=== PATIENT | male | born 1955 | race Hispanic/Latino ===

== ENCOUNTER → 2019-05-13 | Outpatient (CLI) | payer BC ==
--- NOTE | 2019-05-13 10:36 | Diagnostic Imaging Report ---
Exam: Testicular ultrasound. Clinical History: Hydrocele Findings: Sonographic evaluation of the testicles. Both testes are normal in echogenicity and demonstrate normal symmetric blood flow and waveforms. RIGHT: The right testicle measures 3.7 x 1.7 x 3.5 cm. Intratesticular cyst measures 4 x 3 x 4 mm. Epididymis not well seen. Large right complex hydrocele. LEFT: The left testicle measures 4.7 x 2.2 x 2.7 cm. Intratesticular cyst measures 4 x 3 x 4 mm. Epididymis not well seen. Left epididymal cyst measures 2.4 x 1.5 x 2.0 cm. Impression: No testicular torsion. Large complex right hydrocele. Subcentimeter cysts of both testes. Poor visualization of both epididymis. Left epididymal cyst. Signed by: Yue Aviles MD on 05/13/2019 10:32 AM
== END ==
LOC: US 09:14
PROVIDERS: ATTEND Family Medicine
DX: N43.3 Hydrocele, unspecified (principal)
CPT/HCPCS: 76870; 93976

== ENCOUNTER → 2019-07-03 | Day surgery (SDC) | payer BC ==
[2019-06-28 14:22] LABS: BASOPHILS % 0.5 % (0.0-1.0); EOSINOPHILS # (AUTO) 0.1 (0.0-0.4); EOSINOPHILS % 1.1 % (0.0-6.0); HEMATOCRIT 47.2 % (38.2-49.6); LYMPHOCYTES # (AUTO) 1.7 (1.0-3.2); LYMPHOCYTES % 20.2 % (18.0-39.1); MEAN CORPUSCULAR HEMOGLOBIN 30.7 pg (28-32); MEAN CORPUSCULAR HGB CONC 33.9 g/dL (31-35); MEAN CORPUSCULAR VOLUME 90.4 fL (81-99); MONOCYTES # (AUTO) 0.5 (0.2-0.8); MONOCYTES % 5.7 % (4.4-11.3); NEUTROPHILS % 72.3 % (38.7-80.0); PLATELET COUNT 262 x10e3/uL (140-360); RED BLOOD COUNT 5.22 x10e6/uL (4.3-5.7); RED CELL DISTRIBUTION WIDTH 13.6 % (11.7-14.4)
[2019-06-28 14:38] LABS: ANION GAP 14.2 mmol/L (8-16); BLOOD UREA NITROGEN 12 mg/dL (7-26); BUN/CREATININE RATIO 13 (6-25); CALCIUM 9.5 mg/dL (8.4-10.2); CARBON DIOXIDE 24 mmol/L (22-29); CHLORIDE 105 mmol/L (98-107); CREATININE, SERUM 0.94 mg/dL (0.72-1.25); EST GLOMERULAR FILTRATION RATE > 60 ML/MIN (60-); GLUCOSE 110 mg/dL (74-118); POTASSIUM 4.2 mmol/L (3.5-5.1); SODIUM 139 mmol/L (136-145)
--- NOTE | 2019-06-28 14:42 | Diagnostic Imaging Report ---
EXAMINATION: CHEST 2 VIEWS INDICATION: Pre-operative COMPARISON: None FINDINGS: LINES/TUBES:None LUNGS:The lungs are well-inflated. No focal consolidation or pulmonary edema. PLEURA:No pleural effusion or pneumothorax. MEDIASTINUM:The cardiomediastinal silhouette appears normal in size and shape. BONES/SOFT TISSUES:No acute osseous injury. ABDOMEN:No free air under the diaphragm. IMPRESSION: No focal pneumonia or pulmonary edema. Signed by: Yue Aviles MD on 06/28/2019 2:39 PM
[~2019-07-03] MED LIST: ACETAMINOPHEN 1000 MG/100 ML 100 ML IV ONE; BUPIVACAINE 0.25%/EPI 30ML SDV INJ ONE; CEFAZOLIN SOD 1 GM VIAL ONE; DEXAMETHASONE SOD PHOS INJ 4 MG/ML VIAL ONE; FENTANYL CITRATE/PF 100MCG/2 ML INJ ONE; KETOROLAC TROMETHAMINE 30 MG/ML VIAL ONE; LIDOCAINE HCL 1% LOCAL INJ 20 ML VIAL ONE; LIDOCAINE HCL 2% LOCAL INJ 5 ML SDV VIAL INJ ONE; MEPERIDINE HCL INJ 25 MG/ML VIAL ONE; METFORMIN HCL500 MG PO; MIDAZOLAM HCL 2 MG/2 ML VIAL ONE; ONDANSETRON HCL INJ 2MG/ML 2ML 2 MG/ML VIAL ONE; PROPOFOL IV EMULSION 10 MG/ML 20 ML VIAL ONE; SEVOFLURANE INHAL SOLN 250 ML PEN BTL ONE
--- OUTSIDE RECORDS SUMMARY | 2019-07-03 09:00 | XMS REPORT ---
Author Author [facility] Address Unknown Phone Unavailable Care Team Providers Care Assembler Dc Field Yoke Name Role Phone Gemma HERNÁNDEZ Unavailable Unavailable Cristofer KATE Unavailable Unavailable Problems This patient has no known problems. Allergies, Adverse Reactions, Alerts This patient has no known allergies or adverse reactions. Medications This patient has no known medications. Results Test Description Test Time Test Comments Text Results Atomic Results Result Comments CHEST 2 VIEWS 2019-06-28 14:38:00 [facility] [address] [place] [address] Patient Name: LD ZHU MR #: [id number] : 1955 Age/Sex: 64/M Req #: [id number] Adm Physician: Ordered by: RAMESH HERNÁNDEZ MD Report #: [id number] Location: OR Room/Bed: Procedure: [id number] DX/CHEST 2 VIEWS Exam Date: 06/28/19 Exam Time: 1414 REPORT STATUS: Signed EXAMINATION: CHEST 2 VIEWS INDICATION: Pre-operative COMPARISON: None FINDINGS: LINES/TUBES:None LUNGS:The lungs are well-inflated. No focal consolidation or pulmonary edema. PLEURA:No pleural effusion or pneumothorax. MEDIASTINUM:The cardiomediastinal silhouette appears normal in size and shape. BONES/SOFT TISSUES:No acute osseous injury. ABDOMEN:No free air under the diaphragm. IMPRESSION: No focal pneumonia or pulmonary edema. Signed by: Mario Alvarado MD on 06/28/2019 2:39 PM Dictated By: MARIO ALVARADO MD 38 Transcribed By: Darci TAFOYA on 06/28/191438 COPY TO: RAMESH HERNÁNDEZ MD US TESTICULAR 2019-05-13 10:27:00 [place] [address] Patient Name: LD ZHU MR #: [id number] : 1955 Age/Sex: 64/M Req #: [id number] Adm Physician: Ordered by: ARAMIS KATE MD Report #: [id number] Location: Room/Bed: Procedure: [id number] US/US TESTICULAR Exam Date: 05/13/19 Exam Time: 09 REPORT STATUS: Signed Exam: Testicular ultrasound. Clinical History: Hydrocele Findings: Sonographic evaluation of the testicles. Both testes are normal in echogenicity and demonstrate normal symmetric blood flow and waveforms. RIGHT: The right testicle measures 3.7 x 1.7 x 3.5 cm. Intratesticular cyst measures 4 x 3 x 4 mm. Epididymis not well seen. Large right complex hydrocele. LEFT: The left testicle measures 4.7 x 2.2 x 2.7 cm. Intratesticular cyst measures 4 x 3 x 4 mm. Epididymis not well seen. Left epididymal cyst measures 2.4 x 1.5 x 2.0 cm. Impression: No testicular torsion. Large complex right hydrocele. Subcentimeter cysts of both testes. Poor visualization of both epididymis. Left epididymal cyst. Signed by: Mario Alvarado MD on 05/13/2019 10:32 AM Dictated By: MARIO ALVARADO MD 1032 Transcribed By: YECENIA on 05/13/19 1032 COPY TO: ARAMIS KATE MD US TESTICULAR DOPPLER LTD 2019-05-13 10:27:00 [place] [address] Patient Name: LD ZHU MR #: [id number] : 1955 Age/Sex: 64/M Req #: [id number] Adm Physician: Ordered by: ARAMIS KATE MD Report #: [id number] Location: US Room/Bed: Procedure: [id number] US/US TESTICULAR DOPPLER LTD Exam Date: 05/13/19 Exam Time: 09 REPORT STATUS: Signed Exam: Testicular ultrasound. Clinical History: Hydrocele Findings: Sonographic evaluation of the testicles. Both testes are normal in echogenicity and demonstrate normal symmetric blood flow and waveforms. RIGHT: The right testicle measures 3.7 x 1.7 x 3.5 cm. Intratesticular cyst measures 4 x 3 x 4 mm. Epididymis not well seen. Large right complex hydrocele. LEFT: The left testicle measures 4.7 x 2.2 x 2.7 cm. Intratesticular cyst measures 4 x 3 x 4 mm. Epididymis not well seen. Left epididymal cyst measures 2.4 x 1.5 x 2.0 cm. Impression: No testicular torsion. Large complex right hydrocele. Subcentimeter cysts of both testes. Poor visualization of both epididymis. Left epididymal cyst. Signed by: Mario Alvarado MD on 05/13/2019 10:32 AM Dictated By: MARIO ALVARADO MD 1032 Transcribed By: YECENIA on 05/13/19 1032 COPY TO: ARAMIS KATE MD
[2019-07-03 15:25] VITALS: BP 143/91
--- NOTE | 2019-07-03 17:26 | Operative Report ---
DATE OF PROCEDURE: 07/03/2019 SURGEON: Derek Willis MD PREOPERATIVE DIAGNOSIS: Right inguinal hernia and large multiloculated right scrotal hydrocele. POSTOPERATIVE DIAGNOSIS: Right inguinal hernia and large multiloculated right scrotal hydrocele. OPERATION PERFORMED: Repair of right inguinal hernia with extended Prolene hernia system and resection of multiloculated right scrotal hydrocele. PATIENT ACCOUNT LIAISON: KIARA Bruce. ANESTHESIA: General. COMPLICATIONS: None. ESTIMATED BLOOD LOSS: Minimal. DESCRIPTION OF PROCEDURE: With the patient lying in bed in the supine position under good general endotracheal anesthesia, the abdomen was prepped with Betadine solution and draped in the usual manner. A right inguinal incision was made, it was carried down through the subcutaneous tissue down to the external oblique aponeurosis. External oblique was opened along the length of its fibers and the external inguinal ring was opened. The cord was then mobilized and retracted, contained within the cord was a small indirect hernia sac, which was from the cord structures and ligated with a 2-0 silk suture ligature and divided. In the direct space, there was a moderate size direct defect. We decided to go ahead and resect the hydrocele first. The scrotal hydrocele was then slowly and carefully from the scrotal attachments and brought up into the wound. The hydrocele was then from all the cord structures and the scrotum and the sac was totally and completely removed. There were two or three other smaller hydroceles, which were similarly resected. Perfect hemostasis was ascertained and then the testicle was reduced back to the right scrotum. The preperitoneal space was then entered right through the internal ring and a pocket was created without any difficulty. An extended Prolene hernia system was placed in the preperitoneal space and the underlay patch was deployed without any problems. The overlay patch was then placed over the floor and split inferolaterally to allow for passage of the cord. The mesh was then sutured to the conjoined tendon and the inguinal ligament using interrupted sutures of 2-0 Vicryl. The whole area was thoroughly irrigated. Perfect hemostasis was ascertained. All layers were infiltrated on the way out with solution of 0.25% Marcaine. The scrotum was then again inspected and there was no bleeding and the external oblique aponeurosis was then closed with a running suture of 2-0 Vicryl. The subcutaneous tissue was approximated with 3-0 plain and the skin was closed with clips. A dressing was applied. The sponge, lap, and needle count was correct. The patient tolerated the procedure well and returned to the recovery room in stable condition. MD VERONICA Irvin/KAREN /[id number]
== END | disposition home or self-care (01) ==
LOC: OR 08:58
PROVIDERS: ATTEND Surgery
DX: K40.90 Unilateral inguinal hernia, without obstruction or gangrene, not specified as recurrent (principal); N43.2 Other hydrocele; Z01.810 Encounter for preprocedural cardiovascular examination; Z01.812 Encounter for preprocedural laboratory examination; Z01.811 Encounter for preprocedural respiratory examination; E11.9 Type 2 diabetes mellitus without complications; Z79.84 Long term (current) use of oral hypoglycemic drugs
CPT/HCPCS: 36415 ×2; 49505; 55500; 71046; 80048; 82948; 85025; 88304; 93005; C1781; J0131; J0690; J1100; J1885; J2001 ×2; J2175; J2250; J2405; J2704; J3010; 88302